=== PATIENT | male | born 1955 | race Caucasian/White ===

== ENCOUNTER 2018-01-18 19:31 | Emergency (ER) | payer BC ==
--- NOTE | 2018-01-18 19:35 | PDOC ---
History of Present Illness - General History Source: Patient Exam Limitations: No Limitations - History of Present Illness Initial Comments: 01/18/18 22:12 The patient is a 62 year old male with a past medical history of chronic afib ( on xarelto), CHF, blood clot to right leg, and HTN who presents to the emergency department for evaluation of left leg pain and swelling. The patient reports moderate left jay and left calf pain after hitting his left jay with the right heel of his construction boot in attempt to remove his boot on Sunday night. He reports associated swelling and bruising of his left leg. 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 He notes a history of right leg clot secondary to arthroscopic surgery on right knee. The patient denies chest pain, shortness of breath, sensory changes, headache, and dizziness. Denies fever, chills, nausea, vomiting, constipation, and diarrhea. Denies urinary frequency/urgency, dysuria, and hematuria. Allergies: Adhesive tape, NKDA. Social History: No reported alcohol, cigarette, or drug use. Surgical History: Arthroscopic sx on R. knee. PCP: Dr. Gen Person Cream Hauler: Dr. Urrutia <Ray Gandhi - Last Filed: 01/18/18 22:12> <Esthela Farnsworth - Last Filed: 01/19/18 05:30> - General Chief Complaint: Pain Stated Complaint: BLOOD CLOT IN LEG Time Seen by Provider: 01/18/18 19:35 Past History <Ray Gandhi - Last Filed: 01/18/18 22:12> - Past Medical History Anemia: No Asthma: No Cancer: No Cardiac Disorders: (AFIB 2008) CVA: No COPD: No CHF: Yes Dementia: No Diabetes: No GI Disorders: No Disorders: No HTN: Yes Hypercholesterolemia: No Liver Disease: No Seizures: No Thyroid Disease: No - Surgical History Abdominal Surgery: No Appendectomy: No Cardiac Surgery: No Cholecystectomy: No Lung Surgery: No Neurologic Surgery: No Orthopedic Surgery: Yes (ingrid- knee) - Suicide/Smoking/Psychosocial Hx Smoking Status: No Smoking History: Former smoker Years of Tobacco Use: 30 Have you smoked in the past 12 months: No Number of Cigarettes Smoked Daily: 20 If you are a former smoker, when did you quit?: >5 YEARS Hx Alcohol Use: No Drug/Substance Use Hx: No Substance Use Type: None Hx Substance Use Treatment: No <Esthela Farnsworth - Last Filed: 01/19/18 05:30> - Past Medical History Allergies/Adverse Reactions: Allergies Allergy/AdvReac Type Severity Reaction Status Date / Time adhesive tape Allergy Verified 02/23/15 18:40 No Known Drug Allergies Allergy Verified 02/23/15 16:44 Home Medications: Ambulatory Orders Rivaroxaban [Xarelto -] 20 mg PO DAILY 10/13/13 Zolpidem Tartrate [Ambien] 10 mg PO DAILY 10/13/13 Amlodipine Besylate 5 mg PO DAILY 02/23/15 Cephalexin Monohydrate [Keflex -] 500 mg PO Q8H #21 capsule 01/18/18 Furosemide [Lasix] 20 mg PO PRN PRN 01/18/18 Metoprolol Tartrate [Lopressor] 100 mg PO BID 01/18/18 Review of Systems - Review of Systems Able to Perform ROS?: Yes Comments:: GENERAL/CONSTITUTIONAL: No fever or chills. No weakness. HEAD, EYES, EARS, NOSE AND THROAT: No change in vision. No ear pain or discharge. No sore throat. CARDIOVASCULAR: No chest pain or shortness of breath. RESPIRATORY: No cough, wheezing, or hemoptysis. GASTROINTESTINAL: No nausea, vomiting, diarrhea or constipation. GENITOURINARY: No dysuria, frequency, or change in urination. MUSCULOSKELETAL: (+)Left calf pain. (+)Left calf swelling. No joint pain. No neck or back pain. SKIN: No rash NEUROLOGIC: No headache, vertigo, loss of consciousness, or change in strength/ sensation. ENDOCRINE: No increased thirst. No abnormal weight change. HEMATOLOGIC/LYMPHATIC: No anemia, easy bleeding, or history of blood clots. ALLERGIC/IMMUNOLOGIC: No hives or skin allergy. <Ray Gandhi - Last Filed: 01/18/18 22:12> *Physical Exam - Vital Signs Last Vital Signs Temp Pulse Resp BP Pulse Ox 98.8 F 73 16 125/81 100 01/18/18 19:33 01/18/18 19:33 01/18/18 19:33 01/18/18 19:33 01/18/18 19:33 - Physical Exam Comments: GENERAL: Awake, alert, and fully oriented, in no acute distress HEAD: No signs of trauma EYES: PERRLA, EOMI, sclera anicteric, conjunctiva clear ENT: Auricles normal inspection, hearing grossly normal, nares patent, oropharynx clear without exudates. Moist mucosa NECK: Normal ROM, supple, no lymphadenopathy, JVD, or masses LUNGS: Breath sounds equal, clear to auscultation bilaterally. No wheezes, and no crackles HEART: (+)Minimally irregular rate, and irregular rhythm. No murmurs, rubs or gallops ABDOMEN: Soft, nontender, normoactive bowel sounds. No guarding, no rebound. No masses EXTREMITIES: (+)left calf pain. (+)left calf posterior to divot, blood pooling. (+)divot, mid tibia (where boot struck jay) (+)Hematoma at left proximal toe nails 2,3,& 4. NEUROLOGICAL: Cranial nerves II through XII grossly intact. Normal speech, normal gait SKIN: Warm, Dry, normal turgor, no rashes or lesions noted. <Ray Gandhi - Last Filed: 01/18/18 22:12> Medical Decision Making - Medical Decision Making 01/18/18 22:53 Patient Name: DARIN CEDILLO THIS IS A PRELIMINARY REPORT FROM [facility] DATE OF SERVICE: 2018-01-18 21:34:29 IMAGES: 36 EXAM: Lower extremity duplex venous ultrasound HISTORY: Left leg pain and redness swelling COMPARISON: None. FINDINGS: Negative for left lower extremity deep venous thrombosis. There is a 4.4 cm x 2.2 cm x 1.5 cm left popliteal fossa/Maldonado's cyst.. Slightly complex. 01/19/18 05:28 Pt has cellulitis where he injured himself on his jay, and I will treat him with keflex for that. Pt has no DVT and he was reassured. He will follow with PMD.I explained to him that repeat sono in 7-10 days takes the sensitivity of the sono to upper 90 percent to diagnose DVT. He will follow up. Pt's tib/fib XR today is normal. <Esthela Farnsworth - Last Filed: 01/19/18 05:30> *DC/Admit/Observation/Transfer - Attestations Scribe Attestion: Documentation prepared by Ray Gandhi, acting as medical assistant dermatology for Esthela Farnsworth MD. <Ray Gandhi - Last Filed: 01/18/18 22:12> <Esthela Farnsworth - Last Filed: 01/19/18 05:30> Diagnosis at time of Disposition: Left leg swelling - Discharge Dispostion Disposition: HOME Condition at time of disposition: Stable - Prescriptions Prescriptions: Cephalexin Monohydrate [Keflex -] 500 mg PO Q8H #21 capsule - Referrals Referrals: Gen Person MD [Primary Care Provider] - - Patient Instructions Printed Discharge Instructions: DI for Maldonado's Cyst, DI for Contusion - Post Discharge Activity
[2018-01-18 19:56] VITALS: BP 125/81; PULSE 73; TEMP 98.8; BMI 30.4
[2018-01-18] MEDS ORDERED: CEPHALEXIN MONOHYDRATE 500 MG CAPSULE (UD) PO ONE (22:43)
[2018-01-18] MEDS ORDERED: IBUPROFEN 400 MG TABLET (FP) PO ONE (22:52)
[2018-01-18] MEDS ORDERED: CEPHALEXIN MONOHYDRATE 500 MG CAPSULE (UD) ONE (22:52)
== END 2018-01-18 23:06 | disposition home or self-care (01) ==
LOC: FER 19:31
DX: M79.89 Other specified soft tissue disorders (principal); I48.91 Unspecified atrial fibrillation; I25.10 Atherosclerotic heart disease of native coronary artery without angina pectoris; I10 Essential (primary) hypertension; Z79.01 Long term (current) use of anticoagulants; Z87.891 Personal history of nicotine dependence
CPT/HCPCS: 73590-TC-LT-FY; 93971-TC; 99282-25

== ENCOUNTER 2018-09-23 09:20 | Inpatient (IN) | payer BC ==
[2018-09-17 11:30] VITALS: BMI 31.0
--- NOTE | 2018-09-23 07:55 | HP ---
Admitting History and Physical - Admission Chief Complaint: left knee osteoarthritis x years History of Present Illness: 63 year old male presents in regard to his left knee. Longstanding history of left knee osteoarthritis. Patient complains of pain, limited ROM, difficulty ambulating and difficulty completing activities of daily living. Patient has failed conservative treatment measures including PO medications, activity modification, injections and exercise programs. At this point, patient would like to proceed with surgical intervention - left knee arthroplasty, MAKOplasty. History Source: Patient - Past Medical History Cardiovascular: Yes: AFIB, HTN - Past Surgical History Additional Past Surgical History: See written history and physical. - Smoking History Smoking history: Former smoker Have you smoked in the past 12 months: No Aproximately how many cigarettes per day: 20 If you are a former smoker, when did you quit?: >5 YEARS - Alcohol/Substance Use Hx Alcohol Use: No - Social History Occupation: former [employer] Home Medications - Allergies Allergies/Adverse Reactions: Allergies Allergy/AdvReac Type Severity Reaction Status Date / Time adhesive tape Allergy Verified 02/23/15 18:40 No Known Drug Allergies Allergy Verified 02/23/15 16:44 - Home Medications Home Medications: Ambulatory Orders Rivaroxaban [Xarelto -] 20 mg PO DAILY 10/13/13 Zolpidem Tartrate [Ambien] 10 mg PO HS 10/13/13 Amlodipine Besylate 5 mg PO DAILY 02/23/15 Furosemide [Lasix] 20 mg PO PRN PRN 01/18/18 Metoprolol Tartrate [Lopressor] 100 mg PO BID 01/18/18 Family Disease History - Family Disease History Family Disease History: Heart Disease: Mother, Brother (afib), Sister, [place]: Father (melanoma) Review of Systems - Review of Systems Musculoskeletal: reports: Crepitus (left knee), Decreased ROM (left knee), Joint Pain (left knee), Joint Swelling (left knee) Physical Examination Constitutional: Yes: Well Nourished, No Distress Eyes: Yes: Conjunctiva Clear HENT: Yes: Atraumatic Neck: Yes: Supple Cardiovascular: Yes: Regular Rate and Rhythm Respiratory: Yes: Regular Gastrointestinal: Yes: Soft ...Rectal Exam: Yes: Deferred Musculoskeletal: Yes: Joint Stiffness (left knee), Joint Swelling (left knee) Assessment/Plan 63 year old male presents in regard to his left knee. Longstanding history of left knee osteoarthritis. Patient complains of pain, limited ROM, difficulty ambulating and difficulty completing activities of daily living. Patient has failed conservative treatment measures including PO medications, activity modification, injections and exercise programs. At this point, patient would like to proceed with surgical intervention - left knee arthroplasty, MAKOplasty. Pros, cons, risks, benefits and alternatives of a left total knee arthroplasty, MAKOplasty was discussed with patient at length. Patient confirms his understanding and consents to proceed with a left total knee arthroplasty, MAKOplasty.
[~2018-09-23 09:20] MED LIST: CEFAZOLIN 2 GM in DEXTROSE 5%-WATER - 50 ML IVPB ONE
[2018-09-23] MEDS ORDERED: TRANEXAMIC ACID 1000 MG/10 ML VIAL IVPUSH ONE (11:00)
[2018-09-23] MEDS ORDERED: oxyCODONE HCL 10 MG SUSTAINED ACTING TABLET PO ONE (11:00)
[2018-09-23] MEDS ORDERED: PANTOPRAZOLE 40 MG TABLET (FP) PO ONE (11:00)
[2018-09-23] MEDS ORDERED: CELECOXIB 200 MG CAPSULE PO ONE (11:00)
[2018-09-23] MEDS ORDERED: GABAPENTIN 300 MG CAPSULE (FP) PO ONE (11:00)
[2018-09-23] MEDS ORDERED: PROPOFOL 20 ML ONE ×3 (11:12→15:22)
[2018-09-23] MEDS ORDERED: MIDAZOLAM HCL 2 MG/2 ML SINGLE DOSE VIAL ONE ×2 (11:13)
[2018-09-23] MEDS ORDERED: LIDOCAINE HCL/PF 2% SDV 5ML VIAL ONE (11:15)
[2018-09-23] MEDS ORDERED: VANCOMYCIN 1,000 MG VIAL (RESTRICTED TO ID ONLY) ONE (11:44)
[2018-09-23] MEDS ORDERED: ceFAZolin SODIUM 1 GM VIAL ONE ×2 (11:44→13:18)
[2018-09-23] MEDS ORDERED: BUPIVACAINE HCL/PF (5 MG/ML) 30 ML VIAL IJ ONE (11:55)
[2018-09-23] MEDS ORDERED: BUPIVACAINE LIPOSOME/PF (EXPAREL) 266 MG/20 ML VIAL ONE (11:55)
[2018-09-23] MEDS ORDERED: SODIUM CHLORIDE 0.9% P/F 10 ML VIAL IJ ONE (11:55)
[2018-09-23] MEDS ORDERED: BUPIVACAINE HCL/PF 0.5% (5MG/ML) 10 ML VIAL ONE (12:25)
[2018-09-23] MEDS ORDERED: DEXAMETHASONE SOD PHOSPHATE 4 MG/1 ML VIAL ONE (13:54)
[2018-09-23] MEDS ORDERED: ONDANSETRON 4 MG/2 ML VIAL ONE (13:54)
[2018-09-23] MEDS ORDERED: oxyCODONE HCL 5 MG TABLET PO PRN ×2 (14:55→16:40)
[2018-09-23] MEDS ORDERED: LACTATED RINGERS SOLUTION 1,000 ML IV SCH ×2 (15:00→17:00)
[2018-09-23] MEDS ORDERED: HYDROmorphone HCL CARPU-JECT 1 MG/1 ML DISP.SYRIN IVPUSH PRN (16:36)
[2018-09-23] MEDS ORDERED: KETOROLAC TROMETHAMINE 30 MG/1 ML VIAL ONE (16:43)
[2018-09-23] MEDS ORDERED: traMADol HCL 50 MG TABLET ONE (16:44)
[2018-09-23] MEDS ORDERED: ACETAMINOPHEN INJECTION 100 ML IVPB ONE (16:44)
[2018-09-23] MEDS ORDERED: FUROSEMIDE 20 MG TABLET (FP) PO PRN (16:46)
--- NOTE | 2018-09-23 16:46 | OP ---
Operative Note - Note: Operative Date: 09/23/18 Pre-Operative Diagnosis: left knee OA Operation: left TKA Post-Operative Diagnosis: Same as Pre-op Surgeon: Tyree Gibson [employer] Inspector: Alyssa Lopez Anesthesia: Spinal Estimated Blood Loss (mls): 200
[2018-09-23] MEDS ORDERED: MAGNESIUM HYDROX 2400MG/30ML ORAL SUSPENSION 30 ML CUP PO PRN (16:47)
[2018-09-23] MEDS ORDERED: ONDANSETRON 4 MG/2 ML VIAL IVPUSH PRN (16:47)
[2018-09-23] MEDS ORDERED: MAG HYDROX/AL HYDROX/SIMETH 30 ML UNIT-DOSE CUP PO PRN (16:47)
[2018-09-23] MEDS ORDERED: ACETAMINOPHEN 1000 MG/100 ML VIAL (NON FORMULARY) IVPB ONE (16:50)
[2018-09-23] MEDS ORDERED: KETOROLAC TROMETHAMINE 30 MG/1 ML VIAL IVPUSH SCH (17:00)
[2018-09-23] MEDS ORDERED: traMADol HCL 50 MG TABLET PO SCH (17:00)
[2018-09-23] MEDS: LACTATED RINGERS SOLUTION 1,000 ML IV SCH (17:48)
[2018-09-23] MEDS: oxyCODONE HCL 5 MG TABLET PO PRN ×2 (18:22→21:25)
[2018-09-23] MEDS: CEFAZOLIN 1 GM/D5W 1 GM/50 ML BAG IVPB SCH (18:22)
[2018-09-23] MEDS: ASCORBIC ACID 500 MG TABLET (FP) PO SCH (21:24)
[2018-09-23] MEDS: oxyCODONE HCL 10 MG SUSTAINED ACTING TABLET PO SCH (21:25)
[2018-09-23] MEDS: METOPROLOL TARTRATE 50 MG TABLET (FP) PO SCH (21:26)
[2018-09-23] MEDS: GABAPENTIN 300 MG CAPSULE (FP) PO SCH (21:27)
[2018-09-23] MEDS: SENNOSIDES/DOCUSATE COMBO (SENNA PLUS) TABLET (UD) PO SCH (21:27)
[2018-09-23] MEDS ORDERED: CELECOXIB 200 MG CAPSULE PO SCH (22:00)
[2018-09-23] MEDS ORDERED: GABAPENTIN 300 MG CAPSULE (FP) PO SCH (22:00)
[2018-09-23] MEDS: ACETAMINOPHEN 325 MG TABLET (FP) PO SCH (23:26)
[2018-09-23] MEDS: KETOROLAC TROMETHAMINE 30 MG/1 ML VIAL IVPUSH SCH (23:26)
[2018-09-23] MEDS: traMADol HCL 50 MG TABLET PO SCH (23:27)
[2018-09-24] MEDS ORDERED: DEXAMETHASONE SOD PHOSPHATE 10 MG/1 ML VIAL IVPB ONE
[2018-09-24] MEDS: CEFAZOLIN 1 GM/D5W 1 GM/50 ML BAG IVPB SCH (01:17)
[2018-09-24] MEDS: oxyCODONE HCL 5 MG TABLET PO PRN ×2 (01:41→21:15)
[2018-09-24] MEDS: KETOROLAC TROMETHAMINE 30 MG/1 ML VIAL IVPUSH SCH ×3 (06:20→18:42)
[2018-09-24] MEDS: ACETAMINOPHEN 325 MG TABLET (FP) PO SCH ×4 (06:21→23:17)
[2018-09-24] MEDS: traMADol HCL 50 MG TABLET PO SCH ×4 (06:28→23:19)
[2018-09-24 07:52] LABS: HEMATOCRIT 42.2 % (35.4-49); HEMOGLOBIN 14.1 GM/dl (11.7-16.9); MCHC 33.5 g/dl (32.0-35.9); MEAN CELL VOLUME 95.4 fl (80-96); MEAN PLT VOLUME 8.7 fl (7.5-11.1); PLATELET COUNT 277 K/MM3 (134-434); RBC 4.43 M/mm3 (4.00-5.60); RDW 12.6 % (11.9-15.9); WHITE BLOOD COUNT 10.8 K/mm3 (4.0-10.8)
[2018-09-24 07:55] LABS: ANION GAP 12 MMOL/L (8-16); BLOOD UREA NITROGEN 17 mg/dl (7-18); CHLORIDE 102 mmol/L (98-107); CO2 23 mmol/L (21-32); CREATININE 0.9 mg/dl (0.55-1.3); GLUCOSE,RANDOM 140 mg/dl (74-106); POTASSIUM 4.2 mmol/L (3.5-5.1); SODIUM 137 mmol/L (136-145)
[2018-09-24] MEDS: PANTOPRAZOLE 40 MG TABLET (FP) PO SCH (09:12)
[2018-09-24] MEDS: SENNOSIDES/DOCUSATE COMBO (SENNA PLUS) TABLET (UD) PO SCH ×2 (09:12→21:15)
[2018-09-24] MEDS: amLODIPine BESYLATE 5 MG TABLET (FP) PO SCH (09:13)
[2018-09-24] MEDS: GABAPENTIN 300 MG CAPSULE (FP) PO SCH ×2 (09:13→21:15)
[2018-09-24] MEDS: METOPROLOL TARTRATE 50 MG TABLET (FP) PO SCH ×2 (09:13→21:14)
[2018-09-24] MEDS: ASCORBIC ACID 500 MG TABLET (FP) PO SCH ×2 (09:13→21:14)
[2018-09-24] MEDS: MULTIVITAMINS (DAILY MVI) TABLET (FP) PO SCH (09:13)
[2018-09-24] MEDS: oxyCODONE HCL 10 MG SUSTAINED ACTING TABLET PO SCH ×2 (09:14→21:15)
--- NOTE | 2018-09-24 11:14 | PN ---
Progress Note (short form) - Note Progress Note: Anesthesia POD#1 s/p Left knee arthroplasty, Kian. Under Spinal. VSS. Pain well controlled. Score 4/10. PT today. VSS. No apparent post anesthesia complications. continued care as per primary team.
[2018-09-24] MEDS ORDERED: RIVAROXABAN 20 MG TABLET PO SCH (18:00)
[2018-09-24] MEDS: LACTATED RINGERS SOLUTION 1,000 ML IV SCH (20:13)
--- NOTE | 2018-09-24 22:53 | PN ---
Progress Note (short form) - Note Progress Note: Pt seen and examined. Doing well. AVSS Selected Entries 09/24/18 22:03 Temperature 97.8 F Pulse Rate 74 Respiratory 18 Rate Blood Pressure 115/62 O2 Sat by Pulse 96 Oximetry (%) Oxygen Delivery Room Air Method Laboratory Tests 09/24/18 09/24/18 07:06 07:06 WBC 10.8 Hgb 14.1 Hct 42.2 Plt Count 277 Sodium 137 Potassium 4.2 Chloride 102 Carbon Dioxide 23 Anion Gap 12 BUN 17 Creatinine 0.9 Creat Clearance w eGFR 85.23 Random Glucose 140 H Calcium 9.0 Gen: NAD LLE: c/d/i, NVID A/P 63yo male POD#1 s/p L ELVIRA TKA PT/OOB - WBAT LLE D/C home in AM
[2018-09-25] MEDS: ACETAMINOPHEN 325 MG TABLET (FP) PO SCH ×2 (05:16→11:50)
[2018-09-25] MEDS: oxyCODONE HCL 5 MG TABLET PO PRN (05:21)
[2018-09-25] MEDS: traMADol HCL 50 MG TABLET PO SCH ×2 (05:21→11:51)
[2018-09-25 08:24] LABS: HEMATOCRIT 36.4 % (35.4-49); HEMOGLOBIN 11.9 GM/dl (11.7-16.9); MCH 31.5 pg (25.7-33.7); MCHC 32.8 g/dl (32.0-35.9); MEAN CELL VOLUME 96.2 fl (80-96); MEAN PLT VOLUME 8.9 fl (7.5-11.1); PLATELET COUNT 217 K/MM3 (134-434); RBC 3.78 M/mm3 (4.00-5.60); RDW 12.2 % (11.9-15.9); WHITE BLOOD COUNT 12.8 K/mm3 (4.0-10.8)
--- NOTE | 2018-09-25 08:58 | DS ---
Physical Examination Vital Signs: Vital Signs Temperature 98.1 F 09/25/18 05:39 Pulse Rate 71 09/25/18 05:39 Respiratory Rate 18 09/25/18 05:39 Blood Pressure 107/58 L 09/25/18 05:39 O2 Sat by Pulse Oximetry (%) 97 09/25/18 05:39 Labs: CBC, BMP 09/25/18 06:55 09/24/18 07:06 Discharge Summary Reason For Visit: OSTEOARTHRITIS OF LEFT KNEE Current Active Problems Osteoarthritis of left knee (Acute) Procedures: Principal: left ELVIRA TKA Hospital Course: Admitted for elective surgery. Procedure performed without complications. Pt received postoperative antibiotic prophylaxis and DVT ppx. Ambulated with physical therapy. Stable for discharge home with outpatient followup. Condition: Stable - Instructions Diet, Activity, Other Instructions: Dr. Gibson - Knee Replacement Instructions Keep the Aquacel dressing on until removed by Dr. Gibson in 10-14 days - it is antibacterial and waterproof and you can shower with it on. Call the office for a follow-up appointment with Dr. Gibson in 10-14 days. Continue taking Xarelto 10mg daily to prevent blood clots in your legs. Take one Pantoprazole 40mg daily for 6 weeks to protect against heartburn and ulcers. Take Cephalexin (antibiotic) 3x/day for 10 days to help prevent skin infection. Take a multivitamin, stool softener, and extra Vitamin C supplement daily. For pain: *Mild pain (1-3/10): Take 1 Tramadol tablet every 4 hours as needed. Moderate pain (4-6/10): Take 1 Tramadol tablet and 1 Percocet tablet every 4 hours as needed. Severe pain (7-10/10): Take 1 Tramadol tablet and 2 Percocet tablets every 4 hours as needed. Activity: You can put as much weight on the operative leg as you want. Right after you get home, there will be a physical therapist coming to your house to help you walk around and bend/straighten your knee. After your follow-up appointment, you will be sent for more intensive outpatient physical therapy which will include machines and equipment that the home therapist cannot bring to your house. Always use a walker or cane for balance and to prevent falls. Expect to see swelling/bruising from the operative site all the way down to your toes. Wear the compression stocking on the operative side during the day to minimize how much swelling there is in your foot/ankle. Don't wear the stocking at night. You don't have to wear a stocking on the other side. Disposition: VNS/HOME HEALTH CARE - Home Medications Comprehensive Discharge Medication List: Ambulatory Orders Rivaroxaban [Xarelto -] 20 mg PO DAILY 10/13/13 Amlodipine Besylate 5 mg PO DAILY 02/23/15 Furosemide [Lasix] 20 mg PO PRN PRN 01/18/18 Metoprolol Tartrate [Lopressor] 100 mg PO BID 01/18/18 Ascorbic Acid [Vitamin C -] 500 mg PO BID tablet 09/25/18 Cephalexin Monohydrate [Keflex -] 500 mg PO TID #30 capsule 09/25/18 Multivitamins [Multivit ([facility] Formulary)] 1 tab PO DAILY tab 09/25/18 Oxycodone HCl/Acetaminophen [Percocet 5-325 mg Tablet] 1 - 2 tab PO Q4H PRN #60 tablet MDD 10 09/25/18 Pantoprazole Sodium [Protonix -] 40 mg PO DAILY #40 tablet.ec 09/25/18 Sennosides/Docusate Sodium [Pericolace -] 1 tablet PO BID tablet 09/25/18 traMADol HCL [Ultram -] 50 mg PO Q4H PRN #42 tablet MDD 6 09/25/18
[2018-09-25] MEDS: METOPROLOL TARTRATE 50 MG TABLET (FP) PO SCH (09:20)
[2018-09-25 09:23] VITALS: BP 108/60; PULSE 74; TEMP 97.9
[2018-09-25] MEDS: ASCORBIC ACID 500 MG TABLET (FP) PO SCH (09:24)
[2018-09-25] MEDS: PANTOPRAZOLE 40 MG TABLET (FP) PO SCH (09:24)
[2018-09-25] MEDS: SENNOSIDES/DOCUSATE COMBO (SENNA PLUS) TABLET (UD) PO SCH (09:24)
[2018-09-25] MEDS: amLODIPine BESYLATE 5 MG TABLET (FP) PO SCH (09:24)
[2018-09-25] MEDS: MULTIVITAMINS (DAILY MVI) TABLET (FP) PO SCH (09:24)
[2018-09-25] MEDS: GABAPENTIN 300 MG CAPSULE (FP) PO SCH (09:24)
[2018-09-25] MEDS: oxyCODONE HCL 10 MG SUSTAINED ACTING TABLET PO SCH (09:25)
--- NOTE | 2018-09-27 16:38 | PATH ---
Surgical Pathology Report Patient Name: DARIN CEDILLO Med. Rec. #: [id number] /Age/Gender: 1955 (Age: 63) / M Account: [id number] Location: [facility] MED-SURG Taken: 09/23/2018 Received: 09/23/2018 Reported: 09/27/2018 Physicians: Tyree Gibson M.D. Specimen(s) Received BONES LEFT KNEE Clinical History Left knee osteoarthritis Final Diagnosis BONE, KNEE, LEFT, TOTAL KNEE REPLACEMENT MAKOPLASTY: BONE WITH DEGENERATIVE JOINT DISEASE AND REACTIVE SYNOVIUM. Electronically Signed Sloane Salas M.D. Gross Description Received in formalin labeled "bone left knee," is a 12.0 x 10.0 x 1.5 cm aggregate of multiple portions of bone and soft tissue. The tibial plateau measures 8.0 x 5.7 x 1.5 cm. There is a 3.0 cm in greatest dimension area of eburnation present. The remaining articular surfaces are luciano-yellow and diffusely granular. The underlying trabecular bone is yellow and hard. Hat Marker sections are submitted in one, following decalcification. /09/26/2018 [facility]09/26/2018
== END 2018-09-25 13:04 | disposition home health service (06) | DRG 470 ==
LOC: FM/S 09:20
PROVIDERS: ADMIT Student in an Organized Health Care Education/Training Program; ATTEND Student in an Organized Health Care Education/Training Program
PROC: 8E0Y0CZ Robotic Assisted Procedure of Lower Extremity, Open Approach (ICD-10-PCS; 2018-09-23)
PROC: 0SRD0JZ Replacement of Left Knee Joint with Synthetic Substitute, Open Approach (ICD-10-PCS; principal; 2018-09-23 13:41)
DX: M17.12 Unilateral primary osteoarthritis, left knee (principal); I10 Essential (primary) hypertension; I48.91 Unspecified atrial fibrillation; Z87.891 Personal history of nicotine dependence
CPT/HCPCS: 36415; 73560-TC-LT-FY; 80048; 85027; 88304-TC; 88311-TC; 94760; 97116-GP; 97163-GP; J0131; J1100

== ENCOUNTER 2018-12-19 22:17 | Emergency (ER) | payer BC ==
[2018-12-19 22:31] VITALS: BP 147/99; PULSE 83; TEMP 98.3; BMI 29.7
--- NOTE | 2018-12-19 22:40 | PDOC ---
History of Present Illness - General Chief Complaint: Pain Stated Complaint: LT CALF PAIN Time Seen by Provider: 12/19/18 22:18 History Source: Patient Exam Limitations: No Limitations - History of Present Illness Initial Comments: 12/19/18 23:25 This is a 63-year-old male who comes in complaining of pain and swelling in his right calf. Patient is status post knee surgery almost 3 months ago. Patient said he developed suddenly swelling and pain in his calf and ankle. Patient called his orthopedist and was told to come in to get an ultrasound to rule out DVT. Patient otherwise is on xeralto and denies any chest pain, shortness of breath or any other complaints. Allergies: as per nursing notes Past Medical History: none Social history: Lives with family. No smoking. No alcohol. No illicit drugs. Surgical history: None General: No fevers or chills, no weakness, no weight loss HEENT: No change in vision. No sore throat,. No ear pain CardioVascular: no chest discomfort. No shortness of breath Respiratory:No cough, or wheezing. Gastrointestinal: no nausea, vomiting, diarrhea or constipation, No rectal bleeding Genitourinary: No dysuria, hematuria, or frequency Musculoskeletal: Right calf pain and swelling Neurologic: No headache, vertigo, dizziness or loss of consciousness Psychiatric: nor depression Skin: No rashes or easy bruising Endocrine: no increased thirst or abnormal weight change Allergic: no skin or latex allergy All other systems reviewed and normal GENERAL: The patient is awake, alert, and fully oriented, in no acute distress. HEAD: Normal with no signs of trauma. EYES: Pupils equal, round and reactive to light, extraocular movements intact, sclera anicteric, conjunctiva clear. EXTREMITIES: Right leg: There is moderate swelling to the right calf ankle and foot with some tenderness on palpation. Neurovascular is intact. NEUROLOGICAL: Normal speech, normal gait. PSYCH: Normal mood, normal affect. SKIN: Warm, Dry, normal turgor, no rashes or lesions noted. Ultrasound was performed and was negative for DVT however does show a relatively large collection most likely blood in the calf that tracks down to the ankle. Assessment and plan: This is a 63-year-old male with pain in his right calf. Patient has a collection most likely blood in the calf secondary to his cerebral to use. Knee surgery. Patient referred to his orthopedist for further evaluation and follow-up. Past History - Past Medical History Allergies/Adverse Reactions: Allergies Allergy/AdvReac Type Severity Reaction Status Date / Time adhesive tape Allergy Verified 02/23/15 18:40 No Known Drug Allergies Allergy Verified 02/23/15 16:44 Home Medications: Ambulatory Orders Rivaroxaban [Xarelto] 20 mg PO DAILY 10/13/13 Amlodipine Besylate 5 mg PO DAILY 02/23/15 Furosemide [Lasix] 20 mg PO PRN PRN 01/18/18 Metoprolol Tartrate [Lopressor] 100 mg PO BID 01/18/18 Ascorbic Acid [Vitamin C -] 500 mg PO BID tablet 09/25/18 Cephalexin Monohydrate [Keflex -] 500 mg PO TID #30 capsule 09/25/18 Multivitamins [Multivit ([facility] Formulary)] 1 tab PO DAILY tab 09/25/18 Oxycodone HCl/Acetaminophen [Percocet 5-325 mg Tablet] 1 - 2 tab PO Q4H PRN #60 tablet MDD 10 09/25/18 Pantoprazole Sodium [Protonix -] 40 mg PO DAILY #40 tablet.ec 09/25/18 Sennosides/Docusate Sodium [Pericolace -] 1 tablet PO BID tablet 09/25/18 traMADol HCL [Ultram -] 50 mg PO Q4H PRN #42 tablet MDD 6 09/25/18 Anemia: No Asthma: No Cancer: No Cardiac Disorders: Yes (AFIB 2008) CVA: No COPD: No CHF: Yes Dementia: No Diabetes: No GI Disorders: No Disorders: No HTN: Yes Hypercholesterolemia: No Liver Disease: No Seizures: No Thyroid Disease: No - Surgical History Abdominal Surgery: No Appendectomy: No Cardiac Surgery: No Cholecystectomy: No Lung Surgery: No Neurologic Surgery: No Orthopedic Surgery: Yes (ingrid- knee Arthroscopy) - Suicide/Smoking/Psychosocial Hx Smoking Status: No Smoking History: Never smoked Years of Tobacco Use: 30 Have you smoked in the past 12 months: No Number of Cigarettes Smoked Daily: 20 If you are a former smoker, when did you quit?: 2006 Hx Alcohol Use: No Drug/Substance Use Hx: No Substance Use Type: None Hx Substance Use Treatment: No *Physical Exam - Vital Signs Last Vital Signs Temp Pulse Resp BP Pulse Ox 98.3 F 83 16 147/99 98 12/19/18 22:28 12/19/18 22:28 12/19/18 22:28 12/19/18 22:28 12/19/18 22:28 *DC/Admit/Observation/Transfer Diagnosis at time of Disposition: Pain of right calf - Discharge Dispostion Disposition: HOME Condition at time of disposition: Stable Decision to Admit order: No - Referrals Referrals: Gen Person MD [Primary Care Provider] - - Patient Instructions Additional Instructions: Your ultrasound shows there is no blood clotting your leg however there is a fluid collection most likely blood from your knee surgery as you are on a blood thinner. Return to the emergency department immediately with ANY new, persistent or worsening symptoms. Continue any medications as previously prescribed by your physician. You should follow up with your primary doctor as soon as possible regarding today's emergency department visit. . Please make sure your doctor reviews the results of your emergency evaluation. Thank you for coming to the Emergency Department today for your care. It was a pleasure to see you today. Please note that your evaluation is INCOMPLETE until you follow-up with your doctor. - Post Discharge Activity
== END 2018-12-19 23:25 | disposition home or self-care (01) ==
LOC: FER 22:17
DX: M79.661 Pain in right lower leg (principal); I48.91 Unspecified atrial fibrillation; I50.9 Heart failure, unspecified; I10 Essential (primary) hypertension; Z87.891 Personal history of nicotine dependence
CPT/HCPCS: 93971-TC; 99281-25

== ENCOUNTER 2020-10-01 04:24 | Day surgery (SDC) | payer OTHER, BC ==
[2020-09-28 13:32] VITALS: BMI 33.6
[~2020-10-01 04:24] MED LIST changes: -CEFAZOLIN 2 GM in DEXTROSE 5%-WATER - 50 ML IVPB ONE; +DEXAMETHASONE SOD PHOSPHATE 10 MG/1 ML VIAL IM ONE; +IOHEXOL 180 MG/1 ML ML IJ ONE; +LIDOCAINE HCL 1% PRESERVATIVE FREE - 30ML VIAL IJ ONE
[2020-10-01] MEDS ORDERED: DEXAMETHASONE SOD PHOSPHATE/PF 10 MG/ML SDV ONE (07:13)
[2020-10-01] MEDS ORDERED: LIDOCAINE HCL/PF 1% SDV 5ML VIAL ONE (07:13)
[2020-10-01] MEDS ORDERED: LIDOCAINE HCL 1% PRESERVATIVE FREE - 30ML VIAL IJ ONE (08:30)
[2020-10-01] MEDS ORDERED: IOHEXOL 180 MG/1 ML ML IJ ONE ×2 (08:31)
[2020-10-01] MEDS ORDERED: DEXAMETHASONE SOD PHOSPHATE 10 MG/1 ML VIAL IM ONE (08:36)
[2020-10-01 09:08] VITALS: BP 131/81; PULSE 79; TEMP 97.3
== END 2020-10-01 09:25 | disposition home or self-care (01) ==
LOC: JASU-SURG 04:24
PROVIDERS: ATTEND Pain Medicine Pain Medicine
PROC: 3E0R3BZ Introduction of Anesthetic Agent into Spinal Canal, Percutaneous Approach (ICD-10-PCS; 2020-10-01)
PROC: B01BYZZ Fluoroscopy of Spinal Cord using Other Contrast (ICD-10-PCS; 2020-10-01)
PROC: 3E0R33Z Introduction of Anti-inflammatory into Spinal Canal, Percutaneous Approach (ICD-10-PCS; principal; 2020-10-01 08:00)
DX: M54.16 Radiculopathy, lumbar region (principal); M48.061 Spinal stenosis, lumbar region without neurogenic claudication
CPT/HCPCS: 76000-TC-FY; J1100